=== PATIENT | female | born 1990 | race Caucasian/White ===

== ENCOUNTER → 2016-08-19 | Outpatient (CLI) | payer OTHER ==
[2016-08-19 11:17] LABS: BASO % 0.2 %; BASO ABS # 0.02 K/uL (0-0.2); COMPLETE YES; EOS % 1.2 %; HEMATOCRIT 39.2 % (37-47); IG% 0.2 %; LYMPH % 24.2 %; LYMPH ABS # 2.14 K/uL (1.2-3.4); MEAN CELL VOLUME 93.3 fL (80-100); MEAN CORPUSCULAR HEMOGLOBIN 32.4 pg (25-34); MEAN CORPUSCULAR HGB CONC 34.7 g/dl (32-36); MEAN PLATELET VOLUME 10.4 fL (7.4-10.4); MONO % 5.9 %; NEUT % 68.3 %; PLATELET COUNT 270 K/uL (130-400); WHITE BLOOD COUNT 8.83 K/uL (4.8-10.8)
[2016-08-19 12:13] LABS: GTGD 50 Grams
[2016-08-20 14:09] LABS: AFP CONCENTRATION 38.2 NG/ML; AFP MULTIPLE OF MEDIAN 0.97; AFPTS GESTATIONAL AGE 17.4 WEEKS; AFPTS INSULIN DEP DIABETIC? NO; AFPTS MATERNAL WT 150 LBS; ALPHA-FETOPROTEIN RACE CAUCASIAN=W; EDD DETERMINED BY ULTRASOUND; ESTRIOL MULTIPLE OF MEDIAN 1.52; HISTORY OF NTD NO; INHIBIN A 120 PG/ML; INHIBIN A MOM 0.73; REPEAT SAMPLE? NO; hCG MULTIPLE OF MEDIAN 0.28
== END | disposition home or self-care (01) ==
LOC: C.LAB1850 08:58
PROVIDERS: ATTEND Obstetrics & Gynecology
DX: Z34.82 Encounter for supervision of other normal pregnancy, second trimester (principal)